=== PATIENT | male | born 1985 | race Caucasian/White ===

== ENCOUNTER 2020-05-05 11:27 | Emergency (ER) | payer OTHER ==
[2020-05-05] MEDS ORDERED: LIDOCAINE 4% CREAM 5 GM TUBE TP ONE (11:37)
--- NOTE | 2020-05-05 11:39 | ER Document Report ---
HPI - HPI Patient complains to provider of: scalp lac Time Seen by Provider: 05/05/20 11:31 Onset: Just prior to arrival Onset/Duration: Sudden Quality of pain: Achy Pain Level: 1 Context: Patient was working on a vehicle instead of cutting his head on sheet-metal. Adrian landin tetanus immunizations currently up-to-date. Patient denies any loss of consciousness nausea or vomiting. Associated Symptoms: Other - Scalp laceration Exacerbated by: Denies Relieved by: Denies Similar symptoms previously: No Recently seen / treated by doctor: No - ROS ROS below otherwise negative: Yes Systems Reviewed and Negative: Yes All other systems reviewed and negative - NEURO Neurology: DENIES: Headache - GASTROINTESTINAL Gastrointestinal: DENIES: Nausea, Patient vomiting - DERM Skin Color: Normal Skin Problems: Laceration Past Medical History - General Information source: Patient - Social History Smoking Status: Current Every Day Smoker Chew tobacco use (# tins/day): No Frequency of alcohol use: Social Drug Abuse: None Occupation: Active duty Lives with: Family Family History: Reviewed & Not Pertinent Patient has homicidal ideation: No - Medical History Medical History: Negative Past Surgical History: Reports: Hx Tonsillectomy Vertical Provider Document - CONSTITUTIONAL Agree With Documented VS: Yes Exam Limitations: No Limitations General Appearance: WD/WN, No Apparent Distress - HEENT HEENT: Normocephalic - NECK Neck: Normal Inspection - RESPIRATORY Respiratory: No Respiratory Distress - MUSCULOSKELETAL/EXTREMETIES Musculoskeletal/Extremeties: MAEW - NEURO Level of Consciousness: Awake, Alert, Appropriate Motor/Sensory: No Motor Deficit - DERM Integumentary: Warm, Dry, Laceration - 4 cm laceration to apex of scalp, lateral margins of laceration appears superficial Course - Vital Signs Vital signs: Temp Pulse Resp BP Pulse Ox 97.8 F 05/05/20 11:32 Procedures - Laceration/Wound Repair Head Wound length (cm): 4 Wound's Depth, Shape: Linear Anesthetic type: Other - anecream Wound Repaired With: Leslee Number of Sutures: 3 Layer Closure?: No Post-procedure NV exam normal: Yes Complications: No Adult Head Front/Back picture: 1 - lac Discharge - Discharge Clinical Impression: Scalp laceration Qualifiers: Encounter type: initial encounter Qualified Code(s): S01.01XA - Laceration without foreign body of scalp, initial encounter Disposition: HOME, SELF-CARE Instructions: Scalp Laceration ([facility]), Care of Stapled Wounds ([facility]) Additional Instructions: Staple removal in 7 days. Return immediately for any new or worsening symptoms Followup with your primary care provider as needed for recheck Referrals: [facility] [Provider Group] - Follow up as needed
== END 2020-05-05 12:16 | disposition home or self-care (01) ==
LOC: ER 11:27
DX: S01.01XA Laceration without foreign body of scalp, initial encounter (principal); W45.8XXA Other foreign body or object entering through skin, initial encounter; Y93.89 Activity, other specified; F17.200 Nicotine dependence, unspecified, uncomplicated
CPT/HCPCS: 99283; 12002; J3490